=== PATIENT | female | born 1950 | race Caucasian/White ===

== ENCOUNTER 2018-12-03 09:40 | Emergency (ER) | payer MEDICARE, MEDICAID ==
[~2018-12-03] VITALS: Ht 170.2 cm; Wt 69.9 kg
[~2018-12-03 09:40] MED LIST: ALBU8.5H2 IH; ASP81CT PO; CHOL200035 PO; CLOT45CR46 TOP; FURO20TA4 PO; GARL200T PO; GFN600TCR PO; LEVO750T24 PO; LRT10T PO; POTA20TA15 PO; POTA99TA7 PO; PRD10T PO; ST. JOHN'S WORT PO; TIOT18CA IH; TRAM50TA2 PO
[2018-12-03] MEDS ORDERED: EPINEPHrine 0.1 MG/ML 10 ML (HOSPIRA) SYR INJ ONE (09:43)
[2018-12-03] MEDS ORDERED: KETAMINE HCL 100 MG/ML 5 ML VIAL INJ ONE (09:43)
[2018-12-03] MEDS ORDERED: SUCCINYLCHOLINE INJ 100 MG/5 ML SYR INJ ONE (09:43)
[2018-12-03] MEDS ORDERED: RT-ALBUTEROL SULF 2.5 MG/3 ML PRE-MIX VIAL INH SCH (09:45)
--- OUTSIDE RECORDS SUMMARY | 2018-12-03 09:48 | XMS REPORT ---
Author Author Migration, Doctor Organization [facility] Address Unknown Phone Unavailable Care Team Providers Care Emergency Operator Name Role Phone Migration, Doctor Unavailable Unavailable PROBLEMS Type Condition ICD9-CM Code ARE01-EG Code Onset Dates Condition Status SNOMED Code Problem Impaired fasting glucose 790.21 Active 869885827 Problem Cough 786.2 Active 39874042 Problem Other dyspnea and respiratory abnormalities 786.09 Active 406817863 Problem Routine general medical examination at health care facility V70.0 Active 762320103 Problem Essential hypertension, benign 401.1 Active 5038896 Problem PPV23 (PNEUMOVAX) DX V03.82 Active 43128579 Problem Allergic rhinitis, cause unspecified 477.9 Active 86394889 Problem Need for prophylactic vaccination and inoculation, Influenza V04.81 Active 589592759 Problem Edema 782.3 Active 269046347 Problem Insomnia, unspecified 780.52 Active 336042119 Problem Lumbago 724.2 Active 570168764 Problem Chronic airway obstruction, not elsewhere classified 496 Active 62656192 ALLERGIES No Information ENCOUNTERS Encounter Location Date Diagnosis [facility] [id number] [place] [address]88- 1846 Nov, [facility] [id number] [place] [address] 28641- 9497 Nov, [facility] [id number] [place] [address] 36283- 1332 Aug, [facility] [id number] [place] [address] 00318- 6053 Aug, [facility] [address] [address] Mar, [facility] [id number] [place] [address] 23421- 0122 Mar, [facility] [address] [address] Mar, [facility] [place] [facility] [address] [id number] [place] [address] Mar, [facility] [place] [facility] [address] [id number] [place] [address] Feb, [facility] [place] [facility] [address] [id number] [place] [address]106 Feb, [facility] [place] [facility] [address] [id number] [place] [address] 8632 Feb, [facility] [place] [facility] [address] [id number] [place] [address] 36[address] Feb, [facility] [place] [facility] [address] [id number] [place] [address]279 Jan, [facility] [place] [facility] [address] [id number] [place] [address] 5029 Jan, [facility] [place] [facility] [address] [id number] [place] [address] December, [facility] [place] [facility] [address] [id number] [place] [address] 0779 December, [facility] [place] [facility] [address] [id number] [place] [address]- 4[address] December, [facility] [place] [facility] [address] [id number] [place] [address]- 0385 December, [facility] [place] [facility] [address] [id number] [place] [address]- 6751 December, [facility] [place] [facility] [address] [id number] [place] [address]- 8604 December, [facility] [place] [facility] [address] [id number] [place] [address]- 0968 Nov, [facility] [place] [facility] [address] [id number] [place] [address]- 1604 Nov, [facility] [place] [facility] [address] [id number] [place] [address]- 0784 Oct, [facility] [place] [facility] [address] [id number] [place] [address]- 9173 Oct, [facility] [place] [facility] [address] [id number] [place] [address] Sep, [facility] [place] [facility] [address] [id number] [place] [address]- 5666 Sep, [facility] [place] [facility] [address] [id number] [place] [address]- 3036 Sep, [facility] [place] [facility] [address] [id number] [place] [address]- 2677 Sep, [facility] [place] [facility] [address] [id number] [place] [address]- 2328 Aug, [facility] [place] [facility] [address] [id number] [place] [address] 2456 Aug, [facility] [place] [facility] [address] [id number] [place] [address] 1308 Aug, [facility] [place] [facility] [address] [id number] [place] [address]- 0684 Aug, [facility] [place] [facility] [address] [id number] [place] [address] 228[address] Jul, [facility] [place] [facility] [address] [id number] [place] [address]- 2895 Jul, [facility] [place] [facility] [address] [id number] [place] [address]- 6473 Jun, [facility] [place] [facility] [address] [id number] [place] [address]- 7616 Jun, [facility] [place] [facility] [address] [id number] [place] [address]- 9576 Jun, [facility] [place] [facility] [address] [id number] [place] [address]- 0217 Jun, [facility] [place] [facility] [address] [id number] [place] [address]- 3953 Jun, [facility] [place] [facility] [address] [id number] [place] [address]- 9623 Jun, [facility] [place] [facility] [address] [id number] [place] [address]- 9227 Jun, [facility] [place] [facility] [address] [id number] [place] [address]- 1038 Jun, [facility] [place] [facility] [address] [id number] [place] [address]- 0549 May, [facility] [place] [facility] [address] [id number] [place] [address]- 4133 Mar, [facility] [place] [facility] [address] [id number] [place] [address]- 1859 Mar, [facility] [place] [facility] [address] [id number] [place] [address] Mar, [facility] [place] [facility] [address] [id number] [place] [address]- 1967 Jan, [facility] [place] [facility] [address] [id number] [place] [address]- 7945 Jan, [facility] [place] [facility] [address] [id number] [place] [address]- 4146 Jan, [facility] [place] [facility] [address] [id number] [place] [address]- 1797 Jan, [facility] [place] [facility] [address] [id number] [place] [address]- 3951 December, [facility] [place] [facility] [address] [id number] [place] [address]- 6[address] December, [facility] [place] [facility] [address] [id number] [place] [address]- 8788 December, [facility] [place] [facility] [address] [facility] [id number] [place] [address] Nov, [facility] [address] [facility] [id number] [place] [address] Nov, [facility] [address] [facility] [id number] [place] [address] 8217 Nov, [facility] [address] [facility] [id number] [place] [address] 6884 Oct, [facility] [address] [facility] [id number] [place] [address] 7464 Oct, [facility] [address] [facility] [id number] [place] [address] Oct, [facility] [address] [facility] [id number] [place] [address] 4033 Oct, IMMUNIZATIONS No Known Immunizations SOCIAL HISTORY Never Assessed REASON FOR VISIT [facility] [place] VITAL SIGNS MEDICATIONS Medication Instructions Dosage Frequency Start Date End Date Duration Status Albuterol Sulfate 2.5 mg /3 mL (0.083 %) 1 Each by Inhalation route every 4 hours for cough and wheeze PRN Needs a follow up appoinment Aug, Active Dulera 200-5 mcg/actuation 2 Puffs by Inhalation route 2 times per day December, Active Garlic by Oral route Oct, Active Flonase 50 mcg/actuation 1 sprays by Nasal route 2 times per day in each nostril pt needs an appt Aug, Active Aspir-81 by Oral route Oct, Active Multivitamin 1 Tablet by Oral route 1 time per day December, Active ProAir HFA 90 mcg/actuation inhale 1 - 2 puffs by inhalation route every 4 hours as needed Feb, Active amitriptyline 25 mg 1 tablet by Oral route 1 time per day at hs May start with 1/2 a tab at hs December, Active Shar's wort by Oral route Oct, Active Lisinopril 5 mg 1 tablet by Oral route 1 time per day Feb, Active RESULTS No Results PROCEDURES No Known procedures INSTRUCTIONS MEDICATIONS ADMINISTERED No Known Medications
--- OUTSIDE RECORDS SUMMARY | 2018-12-03 09:49 | XMS REPORT | Continuity of Care Document ---
Author Organization Unknown Address Unknown Allergies There is no data. Medications There is no data. Problems Date Dx Coded Attending Type Code Diagnosis Diagnosed By 11/01/2012 GURINDER ARCE DO 786.09 DYSPNEA 11/01/2012 GURINDER ARCE DO 786.2 COUGH 11/01/2012 LENNY SANCHEZ MD 786.09 DYSPNEA 11/01/2012 LENNY SANCHEZ MD 786.2 COUGH 11/01/2012 GURINDER ARCE DO 786.09 DYSPNEA 11/01/2012 GURINDER ARCE DO 786.2 COUGH 11/01/2012 786.09 DYSPNEA 11/01/2012 786.2 COUGH 11/01/2012 786.09 DYSPNEA 11/01/2012 786.2 COUGH 11/01/2012 786.09 DYSPNEA 11/01/2012 786.2 COUGH 11/01/2012 786.09 DYSPNEA 11/01/2012 786.2 COUGH 11/01/2012 LENNY SANCHEZ MD 786.09 DYSPNEA 11/01/2012 LENNY SANCHEZ MD 786.2 COUGH 11/01/2012 LENNY SANCHEZ MD 786.09 DYSPNEA 11/01/2012 LENNY SANCHEZ MD 786.2 COUGH 11/01/2012 LENNY SANCHEZ MD 786.09 DYSPNEA 11/01/2012 LENNY SANCHEZ MD 786.2 COUGH 11/01/2012 LENNY SANCHEZ MD 786.09 DYSPNEA 11/01/2012 LENNY SANCHEZ MD 786.2 COUGH 11/01/2012 LENNY SANCHEZ MD 786.09 DYSPNEA 11/01/2012 LENNY SANCHEZ MD 786.2 COUGH 11/01/2012 GALLO HORSE RIDER, ROSI S 786.09 DYSPNEA 11/01/2012 GALLO HORSE RIDER, ROSI S 786.2 COUGH 11/01/2012 GALLO HORSE RIDER, ROSI S 786.09 DYSPNEA 11/01/2012 ROSI HOLDER APRN 786.2 COUGH 11/19/2012 LENNY SANCHEZ MD 401.1 ESSENTIAL HYPERTENSION BENIGN 11/19/2012 LENNY SANCHEZ MD 496 CHRONIC OBSTRUCTIVE PULMONARY DISEASE 11/19/2012 LENNY SANCHEZ MD 782.3 soft tissue swelling (non-joint) [Sx] 11/19/2012 ARCE DO, GURINDER K 401.1 ESSENTIAL HYPERTENSION BENIGN 11/19/2012 ARCE DO, GURINDER K 496 CHRONIC OBSTRUCTIVE PULMONARY DISEASE 11/19/2012 ARCE DO, GURINDER K 782.3 soft tissue swelling (non-joint) [Sx] 11/19/2012 401.1 ESSENTIAL HYPERTENSION BENIGN 11/19/2012 496 CHRONIC OBSTRUCTIVE PULMONARY DISEASE 11/19/2012 782.3 soft tissue swelling (non-joint) [Sx] 11/19/2012 401.1 ESSENTIAL HYPERTENSION BENIGN 11/19/2012 496 CHRONIC OBSTRUCTIVE PULMONARY DISEASE 11/19/2012 782.3 soft tissue swelling (non-joint) [Sx] 11/19/2012 401.1 ESSENTIAL HYPERTENSION BENIGN 11/19/2012 496 CHRONIC OBSTRUCTIVE PULMONARY DISEASE 11/19/2012 782.3 soft tissue swelling (non-joint) [Sx] 11/19/2012 401.1 ESSENTIAL HYPERTENSION BENIGN 11/19/2012 496 CHRONIC OBSTRUCTIVE PULMONARY DISEASE 11/19/2012 782.3 soft tissue swelling (non-joint) [Sx] 11/19/2012 LENNY SANCHEZ MD 401.1 ESSENTIAL HYPERTENSION BENIGN 11/19/2012 LENNY SANCHEZ MD 496 CHRONIC OBSTRUCTIVE PULMONARY DISEASE 11/19/2012 LENNY SANCHEZ MD 782.3 soft tissue swelling (non-joint) [Sx] 11/19/2012 LENNY SANCHEZ MD 401.1 ESSENTIAL HYPERTENSION BENIGN 11/19/2012 LENNY SANCHEZ MD 496 CHRONIC OBSTRUCTIVE PULMONARY DISEASE 11/19/2012 LENNY SANCHEZ MD 782.3 soft tissue swelling (non-joint) [Sx] 11/19/2012 LENNY SANCHEZ MD 401.1 ESSENTIAL HYPERTENSION BENIGN 11/19/2012 LENNY SANCHEZ MD 496 CHRONIC OBSTRUCTIVE PULMONARY DISEASE 11/19/2012 LENNY SANCHEZ MD 782.3 soft tissue swelling (non-joint) [Sx] 11/19/2012 LENNY SANCHEZ MD 401.1 ESSENTIAL HYPERTENSION BENIGN 11/19/2012 LENNY SANCHEZ MD 496 CHRONIC OBSTRUCTIVE PULMONARY DISEASE 11/19/2012 LENNY SANCHEZ MD 782.3 soft tissue swelling (non-joint) [Sx] 11/19/2012 LENNY SANCHEZ MD 401.1 ESSENTIAL HYPERTENSION BENIGN 11/19/2012 LENNY SANCHEZ MD 496 CHRONIC OBSTRUCTIVE PULMONARY DISEASE 11/19/2012 LENNY SANCHEZ MD 782.3 soft tissue swelling (non-joint) [Sx] 11/19/2012 GALLO HORSE RIDER, ROSI S 401.1 ESSENTIAL HYPERTENSION BENIGN 11/19/2012 GALLO HORSE RIDER, ROSI S 496 CHRONIC OBSTRUCTIVE PULMONARY DISEASE 11/19/2012 GALLO HORSE RIDER, ROSI S 782.3 soft tissue swelling (non-joint) [Sx] 11/19/2012 GALLO HORSE RIDER, ROSI S 401.1 ESSENTIAL HYPERTENSION BENIGN 11/19/2012 GALLO HORSE RIDER, ROSI S 496 CHRONIC OBSTRUCTIVE PULMONARY DISEASE 11/19/2012 GALLO HORSE RIDER, ROSI S 782.3 soft tissue swelling (non-joint) [Sx] 01/14/2013 724.2 LUMBAGO/ LOW BACK PAIN 01/14/2013 780.52 insomnia 01/14/2013 724.2 LUMBAGO/ LOW BACK PAIN 01/14/2013 780.52 insomnia 01/14/2013 724.2 LUMBAGO/ LOW BACK PAIN 01/14/2013 780.52 insomnia 01/14/2013 LENNY SANCHEZ MD 724.2 LUMBAGO/ LOW BACK PAIN 01/14/2013 LENNY SANCHEZ MD 780.52 insomnia 01/14/2013 LENNY SANCHEZ MD 724.2 LUMBAGO/ LOW BACK PAIN 01/14/2013 LENNY SANCHEZ MD 780.52 insomnia 01/14/2013 LENNY SANCHEZ MD 724.2 LUMBAGO/ LOW BACK PAIN 01/14/2013 LENNY SANCHEZ MD 780.52 insomnia 01/14/2013 LENNY SANCHEZ MD 724.2 LUMBAGO/ LOW BACK PAIN 01/14/2013 LENNY SANCHEZ MD 780.52 insomnia 01/14/2013 LENNY SANCHEZ MD M 724.2 LUMBAGO/ LOW BACK PAIN 01/14/2013 LENNY SANCHEZ MD 780.52 insomnia 01/14/2013 GALLO TESFAYE, ROSI S 724.2 LUMBAGO/ LOW BACK PAIN 01/14/2013 LONNIE HOLDER APRNNDA S 780.52 insomnia 01/14/2013 GALLO TESFAYE, ROSI S 724.2 LUMBAGO/ LOW BACK PAIN 01/14/2013 LONNIE HOLDER APRNNDA S 780.52 insomnia 04/09/2013 790.21 IMPAIRED FASTING GLUCOSE 04/09/2013 LENNY SANCHEZ MD M 790.21 IMPAIRED FASTING GLUCOSE 04/09/2013 LENNY SANCHEZ MD 790.21 IMPAIRED FASTING GLUCOSE 04/09/2013 LENNY SANCHEZ MD M 790.21 IMPAIRED FASTING GLUCOSE 04/09/2013 LENNY SANCHEZ MD M 790.21 IMPAIRED FASTING GLUCOSE 04/09/2013 LENNY SANCHEZ MD M 790.21 IMPAIRED FASTING GLUCOSE 04/09/2013 HAYDE HOLDER APRNA S 790.21 IMPAIRED FASTING GLUCOSE 04/09/2013 LONNIE HOLDER APRNNDA S 790.21 IMPAIRED FASTING GLUCOSE 07/02/2013 LENNY SANCHEZ MD V03.82 PPV23 (PNEUMOVAX) DX 07/02/2013 LENNY SANCHEZ MD V04.81 FLU SHOT 07/02/2013 LENNY SANCHEZ MD V03.82 PPV23 (PNEUMOVAX) DX 07/02/2013 LENNY SANCHEZ MD V04.81 FLU SHOT 07/02/2013 LENNY SANCHEZ MD V03.82 PPV23 (PNEUMOVAX) DX 07/02/2013 LENNY SANCHEZ MD V04.81 FLU SHOT 07/02/2013 LENNY SANCHEZ MD V03.82 PPV23 (PNEUMOVAX) DX 07/02/2013 LENNY SANCHEZ MD V04.81 FLU SHOT 07/02/2013 ROSI HOLDER APRN S V03.82 PPV23 (PNEUMOVAX) DX 07/02/2013 ROSI HOLDER APRN S V04.81 FLU SHOT 07/02/2013 ROSI HOLDER APRN S V03.82 PPV23 (PNEUMOVAX) DX 07/02/2013 ROSI HOLDER APRN S V04.81 FLU SHOT 07/21/2013 LENNY SANCHEZ MD 477.9 ALLERGIC RHINITIS 07/21/2013 LENNY SANCHEZ MD 477.9 ALLERGIC RHINITIS 07/21/2013 LENNY SANCHEZ MD 477.9 ALLERGIC RHINITIS 07/21/2013 ROSI HOLDER APRN S 477.9 ALLERGIC RHINITIS 07/21/2013 ROSI HOLDER APRN S 477.9 ALLERGIC RHINITIS 01/07/2014 ROSI HOLDER APRN S V70.0 EXAM - ROUTINE H&P 01/07/2014 ROSI HOLDER APRN S V70.0 EXAM - ROUTINE H&P Procedures Code [place] [address] OXIMETRY 11/01/2012 76046 ROUTINE VENIPUNCTURE 11/19/2012 75364 OXIMETRY 11/19/2012 89991 BMP 11/19/2012 5926634 GFR CALC (RESULT ONLY) 11/19/2012 05996 PULMONARY FUNCTION TEST (IN- HOUSE) 01/01/2013 24667 BRONCHODILATION PRE/POST 01/01/2013 55257 RESPIRATORY FLOW VOLUME LOOP 01/01/2013 32794 PULMONARY EDUCATION 01/01/2013 88315 MAMMOGRAM, SCREENING 01/14/2013 06020 OXIMETRY 01/14/2013 30226 OXIMETRY 01/14/2013 32481 A1C (IN-HOUSE) 04/09/2013 07151 ROUTINE VENIPUNCTURE 07/02/2013 17567 CMP 07/02/2013 62459 LIPID PANEL 07/02/2013 90470 A1C (RML) 07/02/2013 87279 CBC 07/02/2013 42923 OXIMETRY 07/21/2013 Results There is no data. Encounters ACCT No. Visit Date/Time Discharge Status Pt. Type Provider Facility Loc./Unit Complaint [id number] 01/07/2014 10:43:00 01/07/2014 23:59:59 CLS Outpatient ROSI HOLDER APRN [id number] 01/07/2014 10:43:00 01/07/2014 23:59:59 CLS Outpatient ROSI HOLDER APRN [id number] 07/21/2013 11:03:00 07/21/2013 23:59:59 CLS Outpatient LENNY SANCHEZ MD [id number] 07/02/2013 07:41:00 07/02/2013 23:59:59 CLS Outpatient LENNY SANCHEZ MD [id number] 07/02/2013 07:41:00 07/02/2013 23:59:59 CLS Outpatient LENNY SANCHEZ MD [id number] 07/02/2013 07:41:00 07/02/2013 23:59:59 CLS Outpatient LENNY SANCHEZ MD [id number] 04/09/2013 13:16:00 04/09/2013 23:59:59 CLS Outpatient LENNY SANCHEZ MD [id number] 12/04/2012 13:47:00 12/04/2012 23:59:59 CLS Outpatient GURINDER ARCE DO [id number] 11/19/2012 15:12:00 11/19/2012 23:59:59 CLS Outpatient LENNY SANCHEZ MD [id number] 11/01/2012 10:52:00 11/01/2012 23:59:59 CLS Outpatient GURINDER ARCE DO [id number] 04/09/2013 13:16:00 Document Registration [id number] 01/14/2013 09:29:00 Document Registration [id number] 01/14/2013 09:29:00 Document Registration [id number] 01/01/2013 12:30:00 Document Registration
--- NOTE | 2018-12-03 10:00 | NUR ---
Patient refusing to wear bipap mask at this time.
[2018-12-03 10:05] LABS: ABG BASE EXCESS 7.6 MMOL/L (-2.5-2.5); ABG OXYGEN SATURATION 92 % (94-100); ABG PO2 73 MMHG (79-93); ABG TCO2 40.8 MMOL/L (21.0-31.0); ALLENS TEST OK; INSPIRED O2 4 L
[2018-12-03 10:06] LABS: PATIENT TEMP 97.1; VENTILATOR NO
[2018-12-03 10:07] LABS: ABG PH 7.24 (7.37-7.43)
[2018-12-03 10:08] LABS: ABG PCO2 89 MMHG (35-45)
[2018-12-03 10:08] LABS: HEMATOCRIT 42 % (35-52); HEMOGLOBIN 13.2 G/DL (11.5-16.0); MEAN CORPUSCULAR HEMOGLOBIN 31 PG (25-34); MEAN CORPUSCULAR VOLUME 97 FL (80-99); WHITE BLOOD COUNT 21.9 10^3/uL (4.3-11.0)
[2018-12-03 10:09] LABS: BASOPHILS % (AUTO) 0 % (0-10); EOSINOPHILS % (AUTO) 0 % (0-10); LYMPHOCYTES # (AUTO) 0.9 X 10^3 (1.0-4.0); LYMPHOCYTES % (AUTO) 4 % (12-44); MEAN CORPUSCULAR HGB CONC 32 G/DL (32-36); MEAN PLATELET VOLUME 9.5 FL (7.4-10.4); MONOCYTES # (AUTO) 2.1 X 10^3 (0.0-1.0); MONOCYTES % (AUTO) 10 % (0-12); NEUTROPHILS # (AUTO) 18.7 X 10^3 (1.8-7.8); NEUTROPHILS % (AUTO) 85 % (42-75); PLATELET COUNT 386 10^3/uL (130-400); RED CELL DISTRIBUTION WIDTH 13.1 % (10.0-14.5)
[2018-12-03] MEDS ORDERED: LORazepam INJ 2 MG/ML (ATIVAN) VIAL IVP ONE (10:15)
[2018-12-03] MEDS ORDERED: PIPERACILLIN/TAZOBACTAM (BULK) 4.5 GM in NS (IVPB) 100 ML IV ONE (10:15)
[2018-12-03] MEDS ORDERED: PIPERACILLIN/TAZO 4.5 GM VIAL (ZOSYN) IV ONE (10:23)
[2018-12-03] MEDS ORDERED: NS (IVPB) 100 ML ONE (10:24)
[2018-12-03 10:26] LABS: BAND NEUTROPHILS 10 %; BASOPHILS % (MANUAL) 0 %; CARBON DIOXIDE 28 MMOL/L (21-32); CHLORIDE 97 MMOL/L (98-107); EOSINOPHILS % (MANUAL) 0 %; LYMPHOCYTES % (MANUAL) 5 %; MONOCYTES % (MANUAL) 9 %; NEUTROPHILS % (MANUAL) 76 %; SODIUM 142 MMOL/L (135-145)
[2018-12-03 10:27] LABS: ALANINE AMINOTRANSFERASE 18 U/L (0-55); ALKALINE PHOSPHATASE 94 U/L (40-136); BILIRUBIN,TOTAL 0.4 MG/DL (0.1-1.0); BUN/CREATININE RATIO 18; CALCIUM 9.2 MG/DL (8.5-10.1); GFR ESTIMATED > 60; GLUCOSE 142 MG/DL (70-105); MAGNESIUM 2.2 MG/DL (1.8-2.4); TOTAL PROTEIN 8.2 GM/DL (6.4-8.2)
[2018-12-03 10:28] LABS: ALBUMIN 3.3 GM/DL (3.2-4.5)
--- NOTE | 2018-12-03 10:30 | ED General ---
General Stated Complaint: SOB History of Present Illness Date Seen by Provider: Dec 03, 2018 Time Seen by Provider: 10:26 Initial Comments Patient presenting to the emergency department via EMS for evaluation of worsening cough and shortness of breath has been going on for 5 days. She wears approximately 3/2 L of oxygen at home but was tripoding. EMS and they gave her 125 mg Solu-Medrol in addition to DuoNeb breathing treatment. She improved somewhat as her confusion is improving she can say her name which she was not able to initially. She knows where she does have but is confused on the date. She does not know the name of her doctors including a sleeping car service attendant. She was not able to provide much information so I spoke to the and he says that she is quite stubborn and does not want to be evaluated and says that she has been quite ill for the past 5 days with coughing and shortness of breath. Allergies and Home Medications Allergies Coded Allergies: No Allergy Information Available (Unverified , 11/01/12) No Known Drug Allergies (Unverified , 11/01/12) Home Medications Albuterol 8.5 Gm Hfa.aer.ad, 1-2 PUFF IH Q4H PRN, (Reported) 2 PUFFS Aspirin 81 Mg Chew, 81 MG PO DAILY, (Reported) Betamethasone/Clotrimazole 45 Gm Tube, 0 TOP BID, (Reported) APPLY TO AFFECTED AREA(S) Cholecalciferol (Vitamin D3) 2,000 Unit Capsule, 2,000 UNIT PO DAILY, (Reported) Furosemide 20 Mg Tablet, 40 MG PO DAILY, (Reported) Garlic 200 Mg Tablet, 500 MG PO DAILY, (Reported) Guaifenesin 600 Mg Tab, 600 MG PO TID PRN, (Reported) FOR COUGH/CONGESTION Levofloxacin 750 Mg Tablet, 750 MG PO DAILY, (Reported) Loratadine 10 Mg Tab, 10 MG PO HS, (Reported) Potassium Chloride 20 Meq Tab.prt.sr, 1 EACH PO DAILY, (Reported) Prednisone 10 Mg Tab, 10 MG PO DAILY, (Reported) Tiotropium [place] 1 Inh Aerp, 1 INH IH DAILY, (Reported) 1 INHALATION Tramadol Hcl 50 Mg Tablet, 25 MG PO Q6H PRN, (Reported) As needed for pain. [Shar's Wort] , 600 MG PO DAILY, (Reported) Patient Home Medication List Home Medication List Reviewed: Yes Review of Systems Review of Systems Constitutional: see HPI All Other Systems Reviewed Negative Unless Noted: Yes Past Pkrbsho-Daukto-Cufqjb Hx Immunizations Up To Date Tetanus Booster (TDap): More than 5yrs PED Vaccines UTD: No Date of Influenza Vaccine: Nov 02, 2012 Past Medical History COPD Reproductive Disorders: No Female Reproductive Disorders: Denies Sexually Transmitted Disease: No HIV/AIDS: No Fibromyalgia Tinnitis Loss of Vision: Denies Hearing Impairment: Denies Recent Skin Changes Adverse Reaction/Blood Tranf: No Physical Exam Vital Signs Capillary Refill : Height, Weight, BMI Height: '" Weight: lbs. oz. kg; BMI Method: General Appearance: Moderate Distress HEENT: PERRL/EOMI Neck: Normal Inspection Respiratory: Other (diminished aeration with wheezing and crackles in all lung goodwin) Cardiovascular: No Murmur, Tachycardia Gastrointestinal: Non Tender Rectal: Deferred Back: Normal Inspection Extremity: No Pedal Edema Neurologic/Psychiatric: Alert Skin: Normal Color Focused Exam Lactate Level 12/03/18 09:45: Lactic Acid Level 1.32 Lactic Acid Level Laboratory Tests Test 12/03/18 09:45 Lactic Acid Level 1.32 MMOL/L (0.50-2.00) Procedures/Interventions Intubation Method: orotracheal Tube Size: 7.5 Medications: Succinylcholine Positive End Tide CO2: Yes Breath Sounds after Intubation: left greater than right Intubation Complications: other (difficult to bag with pneumothorax noted) Post Intubation Xray: Yes Progress Bilateral needle decompressions done with large amount of air escaping on both sides. Initial attempt on right side returned blood smear was withdrawn and then placed at the rib lower level at approximately the third intercostal space on the right in the second intercostal space on the left. There was a large amount of subcutaneous air before needle decompression. Progress/Results/Core Measures Suspected Sepsis SIRS Temperature: Pulse: Respiratory Rate: Laboratory Tests 12/03/18 09:45: White Blood Count 21.9H Blood Pressure / Mean: 12/03/18 09:45: Lactic Acid Level 1.32 Laboratory Tests 12/03/18 09:45: Creatinine 0.60, Platelet Count 386, Total Bilirubin 0.4 Results/Orders Lab Results Laboratory Tests Test 12/03/18 09:45 12/03/18 09:46 Range/Units White Blood Count 21.9 H 4.3-11.0 10^3/uL Red Blood Count 4.30 L 4.35-5.85 10^6/uL Hemoglobin 13.2 11.5-16.0 G/DL Hematocrit 42 35-52 % Mean Corpuscular Volume 97 80-99 FL Mean Corpuscular Hemoglobin 31 25-34 PG Mean Corpuscular Hemoglobin Concent 32 32-36 G/DL Red Cell Distribution Width 13.1 10.0-14.5 % Platelet Count 386 130-400 10^3/uL Mean Platelet Volume 9.5 7.4-10.4 FL Neutrophils (%) (Auto) 85 H 42-75 % Lymphocytes (%) (Auto) 4 L 12-44 % Monocytes (%) (Auto) 10 0-12 % Eosinophils (%) (Auto) 0 0-10 % Basophils (%) (Auto) 0 0-10 % Neutrophils # (Auto) 18.7 H 1.8-7.8 X 10^3 Lymphocytes # (Auto) 0.9 L 1.0-4.0 X 10^3 Monocytes # (Auto) 2.1 H 0.0-1.0 X 10^3 Eosinophils # (Auto) 0.0 0.0-0.3 10^3/uL Basophils # (Auto) 0.0 0.0-0.1 10^3/uL Neutrophils % (Manual) 76 % Lymphocytes % (Manual) 5 % Monocytes % (Manual) 9 % Eosinophils % (Manual) 0 % Basophils % (Manual) 0 % Band Neutrophils 10 % Sodium Level 142 135-145 MMOL/L Potassium Level 4.0 3.6-5.0 MMOL/L Chloride Level 97 L 98-107 MMOL/L Carbon Dioxide Level 28 21-32 MMOL/L Anion Gap 17 H 5-14 MMOL/L Blood Urea Nitrogen 11 7-18 MG/DL Creatinine 0.60 0.60-1.30 MG/DL Estimat Glomerular Filtration Rate > 60 BUN/Creatinine Ratio 18 Glucose Level 142 H 70-105 MG/DL Lactic Acid Level 1.32 0.50-2.00 MMOL/L Calcium Level 9.2 8.5-10.1 MG/DL Corrected Calcium 9.8 8.5-10.1 MG/DL Magnesium Level 2.2 1.8-2.4 MG/DL Total Bilirubin 0.4 0.1-1.0 MG/DL Aspartate Amino Transf (AST/SGOT) 30 5-34 U/L Alanine Aminotransferase (ALT/SGPT) 18 0-55 U/L Alkaline Phosphatase 94 40-136 U/L Troponin T 26 H <=10 NG/L Pro-B-Type Natriuretic Peptide 475.9 H <75.0 PG/ML Total Protein 8.2 6.4-8.2 GM/DL Albumin 3.3 3.2-4.5 GM/DL Blood Gas Puncture Site RT RADIAL Blood Gas Patient Temperature 97.1 Arterial Blood pH 7.24 *L 7.37-7.43 Arterial Blood Partial Pressure CO2 89 *H 35-45 MMHG Arterial Blood Partial Pressure O2 73 L 79-93 MMHG Arterial Blood HCO3 38 H 23-27 MMOL/L Arterial Blood Total CO2 40.8 H 21.0-31.0 MMOL/L Arterial Blood Oxygen Saturation 92 L 94-100 % Arterial Blood Base Excess 7.6 H -2.5-2.5 MMOL/L Kuldip Test OK Blood Gas Ventilator Setting NO Blood Gas Inspired Oxygen 4 L Micro Results Microbiology 12/03/18 Influenza Types A,B Antigen (LIONEL) - Final, Complete My Orders Orders - SANDRA MCGARRY DO Arterial Blood Gas (12/03/18 09:42) Blood Culture (12/03/18 09:42) Cbc With Automated Diff (12/03/18 09:42) Comprehensive Metabolic Panel (12/03/18 09:42) Influenza A And B Antigens (12/03/18 09:42) Magnesium (12/03/18 09:42) Probnp Fs (12/03/18 09:42) Troponin T (12/03/18 09:42) Chest 1 View Ap/Pa Only (12/03/18 09:42) Lactic Acid Analyzer (12/03/18 09:42) Bipap (Bilevel) Set Up (12/03/18 09:42) Albuterol Pre-Mix Nebs (Rt) (Proventil (12/03/18 09:45) Svn Small Volume Nebulizer (12/03/18 09:42) Lorazepam Injection (Ativan Injection) (12/03/18 10:15) Manual Differential (12/03/18 09:45) Piperacillin/Tazobactam (Bulk) (Zosyn In (12/03/18 10:15) Piperacillin Sodium/Tazobactam (Zosyn Vi (12/03/18 10:23) Ns (Ivpb) (Sodium Chloride 0.9% Ivpb Bag (12/03/18 10:24) Ns Iv 1000 Ml (Sodium Chloride 0.9%) (12/03/18 11:00) Ns Iv 1000 Ml (Sodium Chloride 0.9%) (12/03/18 11:00) Vancomycin Injection (Vancomycin Injecti (12/03/18 11:00) Chest 1 View Ap/Pa Only (12/03/18 ) Medications Given in ED Current Medications Medications Dose Ordered Sig/Tyrel Route Start Time Stop Time Status Last Admin Dose Admin Lorazepam 1 mg ONCE ONCE IVP 12/03/18 10:15 12/03/18 10:16 DC 12/03/18 10:20 1 MG Sodium Chloride 1,000 ml ONCE ONCE IV 12/03/18 11:00 12/03/18 11:01 DC 12/03/18 10:50 1,000 ML Sodium Chloride 1,000 ml ONCE ONCE IV 12/03/18 11:00 12/03/18 11:01 DC 12/03/18 11:14 1,000 ML Vital Signs/I&O Capillary Refill : Progress Note : Progress Note Patient is quite ill with likely pneumonia causing severe COPD exacerbation. Patient is reluctant to be on BiPAP initially and we were able to convince her to try it. I told patient and that if she is not successful on BiPAP there is a good chance that she will need to be intubated. She did not tolerate the bipap and kept taking it off. Patient will be transferred to [facility] for further evaluation and treatment. After I spoke to Dr. Richard at [facility] patient decompensated as she became more somnolent and she appeared to be tiring. Her O2 sats are decreasing into the 80-70% range the decision was made to intubate patient. Her O2 sat was in the 50% range and she was able to be bagged back up to 80% where I decided she had to much distension and needed the ET tube. Patient was intubated with ketamine and succinylcholine with end-tidal CO2 detector turning yellow. Her oxygen saturation saturations improved to the upper 90s. Subcutaneous air was palpated bilaterally patient was needle decompressed bilaterally which had a large amount of air returned, especially on R. Her abdomen was quite rigid and multiple attempts by nurses and by myself using OG and NG approach along with glide scope observation I tried passing the OG and NG tube with no success at decompression of her stomach. She became more difficult to bag and her oxygen saturations declined and she lost pulses. CPR was started with ACLS protocol followed with epinephrine and high-quality chest compressions. Unfortunately patient did not return pulses. I had ant come back into the room while CPR was taking place and told him that she would likely not have return of pulses. He asked us to stop CPR after approximately 30 minutes of CPR had been done. Time of at 11:21 AM. Support provided by and he said that he wanted to leave to go home to start making arrangements and making phone calls. Critical Care Note Critical Care Total Time (minutes) 40 including resuscitation and time spent talking with patient and regarding ed care and plan for transfer with continuing care. Time of : 11:21 Departure Impression Primary Impression: Acute exacerbation of chronic obstructive pulmonary disease (COPD) Additional Impressions: CO2 narcosis Acidosis Pneumonia Hypoxia Pneumothorax on right Pneumomediastinum Disposition: 20 Condition: Transfer Time Spoke to Accepting Phy: 10:26 Transfer Facility: [facility] Method of Transfer: EMS Departure-Patient Inst. Referrals: KIERA WEI DO (PCP/Family) Primary Care Physician SANDRA MCGARRY DO Dec 03, 2018 10:30
--- NOTE | 2018-12-03 10:38 | Diagnostic Imaging Report ---
EXAMINATION: Portable erect AP chest at 1017 hours. INDICATION: Shortness of breath. FINDINGS: The heart size is within normal limits and stable when compared to 11/01/2012. In the interval since the prior exam, the right hemidiaphragm has become obscured by pneumonia/atelectasis and a small amount of fluid. There may also be mild left lower lobe atelectasis/infiltrate and fluid. The upper lungs are clear. The mediastinum is not widened. The osseous structures are intact. IMPRESSION: The appearance of the chest has worsened since the prior study as pneumonia/atelectasis and fluid have developed in the right lung base. There also appears to be a small amount of left lower lobe atelectasis/infiltrate and fluid. A followup exam would be recommended for continued evaluation. Dictated by: Dictated on workstation # [id number]
--- NOTE | 2018-12-03 10:41 | NUR ---
1041- Patient given 150 mg of ketamine and 100 mg succs. Intubated with 7.5 ET tube. 23 cm at the lip. 1050- No pulse felt. Rhythm PEA. Chest compressions started. Dr Benson present in room. 1052- Rhythm PEA. Chest compressions resumed. 1054- 1 mg epi given. Chest compressions continued 1059- 1 mg of epi given. Asystole rhythm. OG tube attempted to decrease gastric pressure. OG tube curled and is unable to be placed. 1102- bilateral needle decompression with positive air return. compressions continued. 1103- 1 mg epi given. asystole rhythm. compressions continued. 1104- OG tube unable to be placed by Dr Benson. 1107- asystole rhythm. No pulse. Compressions resumed. 1110- asystole rhythm. No pulse. Compressions resumed. 1113- OG tube placed. 1115- 1 mg epi given. Chest compressions continued 1118- asystole rhythm 1119- 1 mg epi given. 1121- asystole rhythm. Code called at this time by Dr Benson. Shahid Edwards, present in room.
[2018-12-03] MEDS ORDERED: VANCOMYCIN INJECTION 1,000 MG in NS (IVPB) 250 ML IV SCH (11:00)
[2018-12-03] MEDS ORDERED: NS 1000 ML IV BAG IV ONE ×2 (11:00)
--- NOTE | 2018-12-03 11:25 | Diagnostic Imaging Report ---
PATIENT HISTORY: TUBE PLACEMENT. TECHNIQUE: Frontal view of the upper chest COMPARISON: 12/03/2018 at 10:17 AM FINDINGS: The endotracheal tube is suboptimally visualized, but appears to be at the level of the aortic arch, below the clavicles and above the mariama by approximately 4 cm. There is pneumomediastinum and air in the soft tissues of the neck. There is a moderate sized right pneumothorax. There is airspace consolidation seen in the right lung base. The bases of the lungs were not included on the exam. IMPRESSION: 1. The endotracheal tube is suboptimally seen but appears to be approximately 4 cm above the mariama. 2. At least moderate right pneumothorax, suboptimally evaluated on this supine film. There is no appreciable midline shift at this time. There is pneumomediastinum and subcutaneous air in the neck. 3. The lower thorax was not included on the exam. Findings reported to Marianna in the [place] emergency room at 11:20 AM on 12/03/2018. Dictated by: Dictated on workstation # [id number]
--- NOTE | 2018-12-03 11:58 | NUR ---
Hope from [facility] stated pt was elgible for eye and tissue donation.
--- NOTE | 2018-12-03 11:58 | NUR ---
Bettie from [facility] stated pt needed ice over whole body to cool it down, couple drops of saline in both eyes and ice applied to eyes.
--- NOTE | 2018-12-03 12:03 | NUR ---
[facility] was contacted at this time. Harjinder was given pt information, information and phone number. He is going to get ahold of and figure out what he wanted to do. Harjinder was informed that stated they did not have any money or insurance.
--- NOTE | 2018-12-03 12:06 | NUR ---
Referral number [id number]
--- NOTE | 2018-12-03 13:30 | NUR ---
[facility] called and spoke to Hope, she stated the has not decided yet and needed more time. She stated they were going to call him again at 1600. He stated he needed to talk to his son first. Bettie stated the was struggling and needed more time to decide.
--- NOTE | 2018-12-03 13:33 | NUR ---
Hope with [facility] called back and she stated that she spoke to Luis with home and they stated they could hold body until decision was made and they were going to release the body.
--- NOTE | 2018-12-03 13:49 | NUR ---
Luis with [facility] arrived at this time to take pt to their cooler until decides if the pt will be a doner.
[2018-12-03 14:05] VITALS: BP 0/0
== END 2018-12-03 11:21 | disposition expired ==
LOC: EDUNIT# 09:40 → ER FS 09:42
DX: J44.1 Chronic obstructive pulmonary disease with (acute) exacerbation (principal); J18.9 Pneumonia, unspecified organism; J93.9 Pneumothorax, unspecified; J98.2 Interstitial emphysema; E87.2 Acidosis; R06.89 Other abnormalities of breathing; M79.7 Fibromyalgia; Z99.81 Dependence on supplemental oxygen; Z79.82 Long term (current) use of aspirin; Z79.51 Long term (current) use of inhaled steroids; Z79.52 Long term (current) use of systemic steroids
CPT/HCPCS: 31500; 36415; 71045; 80053; 82805; 83605; 83735; 83880; 84484; 85007; 85027; 87040; 87804